=== PATIENT | male | born 1950 | race Caucasian/White ===

== ENCOUNTER 2019-10-23 15:37 | Emergency (ER) | payer MEDICARE, MEDICAID ==
[~2019-10-23] VITALS: Ht 167.6 cm; Wt 90.7 kg
[~2019-10-23 15:37] MED LIST: BACL10TA PO; GABA-532 PO; LISI10TA4 PO
[2019-10-23] MEDS ORDERED: methylPREDNISolone sod succ 125mg/2ml vial IV ONE (15:55)
[2019-10-23] MEDS ORDERED: ipratropium/albuterol 3ml nebule NEB ONE (15:55)
[2019-10-23 16:05] LABS: BASOPHILS # (AUTO) 0.1 X10'3 (0-0.2); BASOPHILS % (AUTO) 0.8 % (0-1); EOSINOPHILS # (AUTO) 0.2 X10'3 (0-0.9); EOSINOPHILS % (AUTO) 2.6 % (0-6); HEMATOCRIT 40.9 % (42.0-52.0); HEMOGLOBIN 13.8 g/dl (14.0-17.9); LYMPHOCYTES # (AUTO) 1.8 X10'3 (1.1-4.8); LYMPHOCYTES % (AUTO) 26.8 % (21-51); MEAN CORPUSCULAR HEMOGLOBIN 30.9 PG (27.0-31.0); MEAN CORPUSCULAR HGB CONC 33.7 g/dL (33.0-36.5); MEAN CORPUSCULAR VOLUME 91.7 FL (78-98); MEAN PLATELET VOLUME 7.8 FL (7.4-10.4); MONOCYTES # (AUTO) 0.7 X10'3 (0-0.9); MONOCYTES % (AUTO) 9.9 % (2-12); NEUTROPHILS % (AUTO) 59.9 % (42-75); PLATELET COUNT 216 X10'3 (140-440); RED BLOOD COUNT 4.45 X10'6 (4.70-6.10); RED CELL DISTRIBUTION WIDTH 14.6 % (11.5-14.5); WHITE BLOOD COUNT 6.7 X10'3 (4.5-11.0)
[2019-10-23 16:18] LABS: ALANINE AMINOTRANSFERASE 42 U/L (12-78); ALBUMIN 3.6 G/DL (3.4-5.0); ALBUMIN/GLOBULIN RATIO 0.9 (1.1-1.5); ALKALINE PHOSPHATASE 62 IU/L (46-116); ANION GAP 12 (8-16); ASPARTATE AMINO TRANSFERASE 28 U/L (10-37); BILIRUBIN,TOTAL 0.2 MG/DL (0.1-1.0); BLOOD UREA NITROGEN 7 MG/DL (7-18); BUN/CREATININE RATIO 8.8 (5.4-32.0); CALCIUM 8.8 MG/DL (8.5-10.1); CHLORIDE 105 MMOL/L (99-107); GLUCOSE 97 MG/DL (70-104); SODIUM 143 MMOL/L (135-145); TOTAL CARBON DIOXIDE 26.3 MMOL/L (24-32); TOTAL PROTEIN 7.4 G/DL (6.4-8.2); eGFR > 90 ML/MIN
[2019-10-23] MEDS ORDERED: ALBU6.7H9 INH (16:56)
[2019-10-23] MEDS ORDERED: PRED20TA PO (16:56)
[2019-10-23] MEDS ORDERED: AMOX-419 PO (16:56)
[2019-10-23 17:09] VITALS: BP 150/88
== END 2019-10-23 17:19 | disposition home or self-care (01) ==
LOC: ER 15:37
DX: J45.909 Unspecified asthma, uncomplicated (principal); Z87.891 Personal history of nicotine dependence; Z79.899 Other long term (current) drug therapy
CPT/HCPCS: 36415; 71046; 80053; 83605; 83880; 84484; 85025; 87040; 93005; 94640; 96374; 99284; J2930; 94760

== ENCOUNTER 2019-10-28 10:14 | Emergency (ER) | payer MEDICARE, MEDICAID ==
[~2019-10-28] VITALS: Ht 170.2 cm; Wt 92.0 kg
[~2019-10-28 10:14] MED LIST changes: +ALBU6.7H9 INH; +AMOX-419 PO; +PRED20TA PO
[2019-10-28 11:24] VITALS: BP 168/92
[2019-10-28] MEDS ORDERED: ipratropium/albuterol 3ml nebule NEB ONE (11:55)
[2019-10-28] MEDS ORDERED: BUDE10.2 INH (12:18)
== END 2019-10-28 12:23 | disposition home or self-care (01) ==
LOC: ER 10:14
DX: J44.1 Chronic obstructive pulmonary disease with (acute) exacerbation (principal); F12.90 Cannabis use, unspecified, uncomplicated; Z87.891 Personal history of nicotine dependence; Z91.048 Other nonmedicinal substance allergy status
CPT/HCPCS: 71046; 94640; 94760; 99283

== ENCOUNTER 2019-11-08 14:24 | Emergency (ER) | payer MEDICARE, MEDICAID ==
[~2019-11-08] VITALS: Ht 170.2 cm; Wt 87.5 kg
[~2019-11-08 14:24] MED LIST changes: -AMOX-419 PO; +BUDE10.2 INH; -PRED20TA PO
[2019-11-08 14:37] VITALS: BP 179/109
[2019-11-08] MEDS ORDERED: ketorolac tromethamine 15mg/ml inj. IM ONE (17:00)
== END 2019-11-08 17:37 | disposition home or self-care (01) ==
LOC: ER 14:24
DX: M25.512 Pain in left shoulder (principal); J44.9 Chronic obstructive pulmonary disease, unspecified; F12.90 Cannabis use, unspecified, uncomplicated; Z88.6 Allergy status to analgesic agent; Z79.899 Other long term (current) drug therapy
CPT/HCPCS: 73030; 96372; 99283; J1885

== ENCOUNTER 2021-06-22 19:10 | Inpatient (IN) | payer MEDICARE, MEDICAID ==
[~2021-06-22] VITALS: Ht 167.6 cm; Wt 93.0 kg
[~2021-06-22 19:10] MED LIST changes: +LISI10TA27 PO; -LISI10TA4 PO
[2021-06-22 20:04] LABS: BASOPHILS # (AUTO) 0.1 X10'3 (0-0.2); EOSINOPHILS # (AUTO) 0.5 X10'3 (0-0.9); HEMATOCRIT 40.3 % (42.0-52.0); HEMOGLOBIN 13.6 g/dl (14.0-17.9); LYMPHOCYTES # (AUTO) 1.6 X10'3 (1.1-4.8); MEAN CORPUSCULAR HEMOGLOBIN 31.6 PG (27.0-31.0); MEAN CORPUSCULAR HGB CONC 33.6 g/dL (33.0-36.5); MEAN PLATELET VOLUME 8.8 FL (7.4-10.4); MONOCYTES # (AUTO) 0.4 X10'3 (0-0.9); MONOCYTES % (AUTO) 5.4 % (2-12); NEUTROPHILS # (AUTO) 4.2 X10'3 (1.8-7.7); NEUTROPHILS % (AUTO) 62.6 % (42-75); PLATELET COUNT 171 X10'3 (140-440); RED BLOOD COUNT 4.28 X10'6 (4.70-6.10); RED CELL DISTRIBUTION WIDTH 15.2 % (11.5-14.5); WHITE BLOOD COUNT 6.7 X10'3 (4.5-11.0)
[2021-06-22 20:17] LABS: ALANINE AMINOTRANSFERASE 51 U/L (12-78); ALBUMIN/GLOBULIN RATIO 0.9 (1.1-1.5); ALKALINE PHOSPHATASE 101 IU/L (46-116); ANION GAP 12 (8-16); ASPARTATE AMINO TRANSFERASE 41 U/L (10-37); BILIRUBIN,TOTAL 0.9 MG/DL (0.1-1.0); BLOOD UREA NITROGEN 12 MG/DL (7-18); BUN/CREATININE RATIO 9.3 (5.4-32.0); CALCIUM 9.4 MG/DL (8.5-10.1); CHLORIDE 98 MMOL/L (99-107); CREATININE 1.29 MG/DL (0.60-1.10); GLUCOSE 115 MG/DL (70-104); POTASSIUM 4.1 MMOL/L (3.5-5.1); SODIUM 135 MMOL/L (135-145); TOTAL CARBON DIOXIDE 24.8 MMOL/L (24-32); TOTAL PROTEIN 8.4 G/DL (6.4-8.2); eGFR 55 ML/MIN
[2021-06-22 20:21] LABS: ETHANOL < 0.010 GM/DL (0.0-0.010); TROPONIN I < 0.04 NG/ML (0.0-0.05)
[2021-06-22] MEDS ORDERED: iohexol 350MG/ML 100ml bottle IV ONE (20:40)
--- NOTE | 2021-06-22 20:54 | NUR ---
to ct via [facility]
[2021-06-22 21:42] LABS: CLARITY,URINE CLEAR (Clear); COLOR,URINE STRAW (Yellow); GLUCOSE, URINE NEGATIVE (Neg); KETONES,URINE NEGATIVE (Neg); LEUKOCYTE ESTERASE ,URINE NEGATIVE (Neg); NITRITES, URINE NEGATIVE (Neg); OCCULT BLOOD,URINE NEGATIVE (Neg); PROTEIN,URINE NEGATIVE (Neg); UA COLLECTION TYPE URINAL; UROBILINOGEN,URINE 0.2 E.U/dL (0.2-1.0)
[2021-06-22 21:53] LABS: URINE AMPHETAMINE SCREEN NEGATIVE (Neg); URINE BARBITUATE SCREEN NEGATIVE (Neg); URINE BENZODIAZEPINES SCREEN NEGATIVE (Neg); URINE CANNABINOID SCREEN POSITIVE (Neg); URINE COCAINE SCREEN NEGATIVE (Neg); URINE METHADONE SCREEN NEGATIVE (Neg); URINE OPIATE SCREEN NEGATIVE (Neg); URINE PHENCYCLIDINE SCREEN NEGATIVE (Neg)
[2021-06-22] MEDS ORDERED: magnesium hydroxide 30ml (MOM) UD suspension PO PRN (23:35)
[2021-06-22] MEDS ORDERED: ondansetron/PF 4mg/2ml inj IV PRN (23:35)
[2021-06-22] MEDS ORDERED: potassium Cl 20 mEq SR tablet PO PRN ×2 (23:35)
[2021-06-22] MEDS ORDERED: acetaminophen 325mg tablet PO PRN (23:35)
[2021-06-22] MEDS ORDERED: mag hydrox/Alum hydrox/simeth 30ml oral suspension PO PRN (23:35)
[2021-06-22] MEDS ORDERED: potassium Cl 40MEQ/1/2NS 520ml 520 ML IV PRN ×2 (23:35)
[2021-06-22] MEDS ORDERED: traMADol 50MG tablet PO PRN (23:45)
[2021-06-22] MEDS ORDERED: METO25TA6 PO (23:50)
[2021-06-22] MEDS ORDERED: ATOR10TA70 PO (23:50)
[2021-06-22] MEDS ORDERED: OMEP-50 PO (23:50)
[2021-06-22] MEDS ORDERED: TRAM50TA2 PO (23:50)
[2021-06-22] MEDS ORDERED: LOSA50TA64 PO (23:51)
[2021-06-22] MEDS ORDERED: LOSA25TA41 PO (23:51)
[2021-06-23 02:21] LABS: ALANINE AMINOTRANSFERASE 44 U/L (12-78); ALBUMIN 3.4 G/DL (3.4-5.0); ALBUMIN/GLOBULIN RATIO 0.9 (1.1-1.5); ALKALINE PHOSPHATASE 90 IU/L (46-116); ANION GAP 8 (8-16); ASPARTATE AMINO TRANSFERASE 38 U/L (10-37); BLOOD UREA NITROGEN 12 MG/DL (7-18); BUN/CREATININE RATIO 9.8 (5.4-32.0); CALCIUM 8.7 MG/DL (8.5-10.1); CHLORIDE 100 MMOL/L (99-107); CREATININE 1.23 MG/DL (0.60-1.10); GLUCOSE 96 MG/DL (70-104); POTASSIUM 4.1 MMOL/L (3.5-5.1); SODIUM 136 MMOL/L (135-145); TOTAL CARBON DIOXIDE 27.8 MMOL/L (24-32); TOTAL PROTEIN 7.1 G/DL (6.4-8.2); eGFR 59 ML/MIN
--- NOTE | 2021-06-23 06:55 | NUR ---
Received report from Porsche PÉREZ in ER
[2021-06-23 08:00] VITALS: BP 158/96
[2021-06-23] MEDS: K and/or MAG REPLACEMENT MC SCH ×2 (08:00→20:00)
--- NOTE | 2021-06-23 08:30 | NUR ---
0830. Pt. in room. VSS. Pt. alert and orientated. No needs at this time. Oriented to room and call light within reach. No privacy curtains in room. secretary office clerk made aware.
[2021-06-23 09:14] LABS: BASOPHILS % (AUTO) 0.9 % (0-1); EOSINOPHILS # (AUTO) 0.5 X10'3 (0-0.9); EOSINOPHILS % (AUTO) 9.9 % (0-6); HEMATOCRIT 39.6 % (42.0-52.0); HEMOGLOBIN 13.2 g/dl (14.0-17.9); LYMPHOCYTES # (AUTO) 1.6 X10'3 (1.1-4.8); LYMPHOCYTES % (AUTO) 28.7 % (21-51); MEAN CORPUSCULAR HEMOGLOBIN 31.6 PG (27.0-31.0); MEAN CORPUSCULAR HGB CONC 33.4 g/dL (33.0-36.5); MEAN CORPUSCULAR VOLUME 94.6 FL (78-98); MEAN PLATELET VOLUME 9.2 FL (7.4-10.4); MONOCYTES # (AUTO) 0.4 X10'3 (0-0.9); MONOCYTES % (AUTO) 7.3 % (2-12); NEUTROPHILS # (AUTO) 2.9 X10'3 (1.8-7.7); NEUTROPHILS % (AUTO) 53.2 % (42-75); PLATELET COUNT 142 X10'3 (140-440); RED BLOOD COUNT 4.19 X10'6 (4.70-6.10); RED CELL DISTRIBUTION WIDTH 15.1 % (11.5-14.5); WHITE BLOOD COUNT 5.4 X10'3 (4.5-11.0)
[2021-06-23] MEDS: heparin, porcine 5000 units/ml vial SQ SCH ×2 (10:58→20:51)
[2021-06-23] MEDS: aspirin 325mg tablet, delayed-release (Ecotrin) PO SCH (10:59)
[2021-06-23] MEDS: losartan 25mg tablet PO SCH (10:59)
[2021-06-23 11:00] VITALS: BP 144/92
[2021-06-23] MEDS: atorvastatin 10mg tablet PO SCH (11:00)
[2021-06-23] MEDS: metoprolol succinate 25mg (24-HOUR) SR. Tablet PO SCH (11:00)
[2021-06-23] MEDS: docusate sod 100mg capsule PO SCH ×2 (11:00→20:50)
--- NOTE | 2021-06-23 15:20 | NUR ---
PAGER ID: [phone] MESSAGE: Javi Balwinder [id number] C/o 05/04 back pain. Tramadol only BID and has already been given. Machining Manager recommends ETOH folic acid, multi vi thiamine r/t 2-3 beers a day alcohol use. do you want this? Mildred [id number]
[2021-06-23] MEDS: traMADol 50MG tablet PO PRN (17:59)
--- NOTE | 2021-06-23 18:52 | NUR ---
Gave report to Nati colindres RN.
[2021-06-23 23:28] VITALS: BP 130/82
[2021-06-24 02:00] VITALS: BP 130/70
[2021-06-24] MEDS: traMADol 50MG tablet PO PRN ×2 (02:18→08:49)
[2021-06-24 06:15] LABS: BASOPHILS % (AUTO) 0.7 % (0-1); EOSINOPHILS # (AUTO) 0.7 X10'3 (0-0.9); EOSINOPHILS % (AUTO) 12.8 % (0-6); HEMATOCRIT 36.7 % (42.0-52.0); HEMOGLOBIN 12.2 g/dl (14.0-17.9); LYMPHOCYTES # (AUTO) 1.7 X10'3 (1.1-4.8); LYMPHOCYTES % (AUTO) 30.5 % (21-51); MEAN CORPUSCULAR HEMOGLOBIN 31.6 PG (27.0-31.0); MEAN CORPUSCULAR HGB CONC 33.2 g/dL (33.0-36.5); MEAN CORPUSCULAR VOLUME 95.4 FL (78-98); MEAN PLATELET VOLUME 9.8 FL (7.4-10.4); MONOCYTES # (AUTO) 0.4 X10'3 (0-0.9); MONOCYTES % (AUTO) 7.7 % (2-12); NEUTROPHILS # (AUTO) 2.7 X10'3 (1.8-7.7); NEUTROPHILS % (AUTO) 48.3 % (42-75); PLATELET COUNT 140 X10'3 (140-440); RED BLOOD COUNT 3.84 X10'6 (4.70-6.10); RED CELL DISTRIBUTION WIDTH 14.8 % (11.5-14.5); WHITE BLOOD COUNT 5.7 X10'3 (4.5-11.0)
[2021-06-24 06:27] LABS: ALANINE AMINOTRANSFERASE 42 U/L (12-78); ALBUMIN 3.2 G/DL (3.4-5.0); ALBUMIN/GLOBULIN RATIO 0.9 (1.1-1.5); ALKALINE PHOSPHATASE 84 IU/L (46-116); ANION GAP 8 (8-16); ASPARTATE AMINO TRANSFERASE 34 U/L (10-37); BILIRUBIN,TOTAL 0.9 MG/DL (0.1-1.0); BLOOD UREA NITROGEN 15 MG/DL (7-18); BUN/CREATININE RATIO 12.3 (5.4-32.0); CALCIUM 8.8 MG/DL (8.5-10.1); CHLORIDE 101 MMOL/L (99-107); CREATININE 1.22 MG/DL (0.60-1.10); GLUCOSE 87 MG/DL (70-104); POTASSIUM 3.7 MMOL/L (3.5-5.1); SODIUM 136 MMOL/L (135-145); TOTAL CARBON DIOXIDE 26.9 MMOL/L (24-32); TOTAL PROTEIN 6.9 G/DL (6.4-8.2); eGFR 59 ML/MIN
--- NOTE | 2021-06-24 06:33 | NUR ---
Patient in room [facility]. I have received report from Nati PÉREZ and had the opportunity to ask questions and assume patient care.
[2021-06-24 07:00] VITALS: BP 87/61
[2021-06-24] MEDS: K and/or MAG REPLACEMENT MC SCH (08:00)
[2021-06-24] MEDS: docusate sod 100mg capsule PO SCH (08:00)
[2021-06-24] MEDS: aspirin 325mg tablet, delayed-release (Ecotrin) PO SCH (08:46)
[2021-06-24] MEDS: atorvastatin 10mg tablet PO SCH (08:46)
[2021-06-24] MEDS: metoprolol succinate 25mg (24-HOUR) SR. Tablet PO SCH (08:46)
[2021-06-24] MEDS: heparin, porcine 5000 units/ml vial SQ SCH (08:47)
[2021-06-24] MEDS: losartan 25mg tablet PO SCH (08:51)
[2021-06-24 08:59] VITALS: BP 142/91
--- NOTE | 2021-06-24 11:13 | NUR ---
patient found to be saturated with urine this am. Placed in shower. Addendum: 06/24/21 at 1120 by Lisa Daniels RN wrong patient
[2021-06-24] MEDS ORDERED: MECL-159 PO (11:21)
--- NOTE | 2021-06-24 11:29 | NUR ---
patient up and about states he is still slightly dizzy when he stands up. orthosatic negative. seen by DR Worley is for discharge. All DC instructions given to patient. Patient is in stable condition. DC home via private car to home with friend
== END 2021-06-24 11:47 | disposition home or self-care (01) | DRG 149 ==
LOC: ER 19:11 → ED HOLD 23:36 → SUR 3N 06-23 08:18
PROVIDERS: ADMIT Internal Medicine; ATTEND Family Medicine
PROC: B3251ZZ Computerized Tomography (CT Scan) of Bilateral Common Carotid Arteries using Low Osmolar Contrast (ICD-10-PCS; principal; 2021-06-22)
PROC: B32G1ZZ Computerized Tomography (CT Scan) of Bilateral Vertebral Arteries using Low Osmolar Contrast (ICD-10-PCS; 2021-06-22)
PROC: B32R1ZZ Computerized Tomography (CT Scan) of Intracranial Arteries using Low Osmolar Contrast (ICD-10-PCS; 2021-06-22)
PROC: B3281ZZ Computerized Tomography (CT Scan) of Bilateral Internal Carotid Arteries using Low Osmolar Contrast (ICD-10-PCS; 2021-06-22)
DX: H81.10 Benign paroxysmal vertigo, unspecified ear (principal); R55 Syncope and collapse; I10 Essential (primary) hypertension; J44.9 Chronic obstructive pulmonary disease, unspecified; M19.90 Unspecified osteoarthritis, unspecified site; Z96.652 Presence of left artificial knee joint; M47.9 Spondylosis, unspecified; E78.5 Hyperlipidemia, unspecified; F12.90 Cannabis use, unspecified, uncomplicated; G89.29 Other chronic pain; M54.9 Dorsalgia, unspecified; Z79.899 Other long term (current) drug therapy; Z88.8 Allergy status to other drugs, medicaments and biological substances; Z79.82 Long term (current) use of aspirin
CPT/HCPCS: 36415; 70496; 70498; 70551; 71045; 80053; 80305; 80320; 81003; 84484; 85025; 87081; 93306; 99285; G0378; J1644; Q9967

== ENCOUNTER 2022-06-01 09:53 | Emergency (ER) | payer MEDICARE, MEDICAID ==
[~2022-06-01] VITALS: Ht 170.2 cm; Wt 90.9 kg
[~2022-06-01 09:53] MED LIST changes: -ALBU6.7H9 INH; +ATOR10TA70 PO; -BACL10TA PO; -BUDE10.2 INH; -GABA-532 PO; -LISI10TA27 PO; +LOSA25TA41 PO; +LOSA50TA64 PO; +MECL-159 PO; +METO25TA6 PO; +OMEP20CA16 PO; +TRAM50TA2 PO
[2022-06-01] MEDS ORDERED: HYDROcodone/acetaminophen 10/325mg tab PO ONE (11:45)
[2022-06-01 12:11] LABS: BASOPHILS # (AUTO) 0.2 X10'3 (0-0.2); EOSINOPHILS # (AUTO) 0.4 X10'3 (0-0.9)
[2022-06-01 12:20] LABS: HEMATOCRIT 35.6 % (42.0-52.0); WHITE BLOOD COUNT 6.8 X10'3 (4.5-11.0)
[2022-06-01 12:22] LABS: APTT 33 SECONDS (22-32); EOSINOPHILS % (AUTO) 5.7 % (0-6); MEAN CORPUSCULAR HEMOGLOBIN 33.6 PG (27.0-31.0); MEAN CORPUSCULAR HGB CONC 33.7 g/dL (33.0-36.5); MEAN CORPUSCULAR VOLUME 99.8 FL (78-98); MEAN PLATELET VOLUME 8.4 FL (7.4-10.4); NEUTROPHILS % (AUTO) 52.2 % (42-75); PLATELET COUNT 111 X10'3 (140-440); RED BLOOD COUNT 3.56 X10'6 (4.70-6.10); RED CELL DISTRIBUTION WIDTH 18.7 % (11.5-14.5)
[2022-06-01 12:25] LABS: BASOPHILS % (AUTO) 2.9 % (0-1); LYMPHOCYTES % (AUTO) 30.3 % (21-51); MONOCYTES # (AUTO) 0.7 X10'3 (0-0.9); NEUTROPHILS # (AUTO) 3.3 X10'3 (1.8-7.7)
[2022-06-01 12:28] LABS: ALANINE AMINOTRANSFERASE 34 U/L (12-78); ALBUMIN 2.7 G/DL (3.4-5.0); ALBUMIN/GLOBULIN RATIO 0.6 (1.1-1.5); ALKALINE PHOSPHATASE 103 IU/L (46-116); ANION GAP 8 (8-16); ASPARTATE AMINO TRANSFERASE 69 U/L (10-37); BILIRUBIN,TOTAL 1.2 MG/DL (0.1-1.0); BLOOD UREA NITROGEN 7 MG/DL (7-18); CALCIUM 8.8 MG/DL (8.5-10.1); CHLORIDE 109 MMOL/L (99-107); CREATININE 0.88 MG/DL (0.60-1.10); GLUCOSE 112 MG/DL (70-104); POTASSIUM 3.8 MMOL/L (3.5-5.1); SODIUM 146 MMOL/L (135-145); TOTAL CARBON DIOXIDE 28.6 MMOL/L (24-32); TOTAL PROTEIN 7.3 G/DL (6.4-8.2); eGFR 86 ML/MIN
[2022-06-01 12:49] LABS: ANISOCYTOSIS 2+; PLATELET ESTIMATE DECREASED; TOTAL CELLS COUNTED 100
[2022-06-01 13:06] VITALS: BP 140/88
== END 2022-06-01 13:11 | disposition home or self-care (01) ==
LOC: ER 09:53
DX: I89.0 Lymphedema, not elsewhere classified (principal); I10 Essential (primary) hypertension; J44.9 Chronic obstructive pulmonary disease, unspecified; G89.29 Other chronic pain; F12.90 Cannabis use, unspecified, uncomplicated; Z91.041 Radiographic dye allergy status; Z79.899 Other long term (current) drug therapy
CPT/HCPCS: 36415; 80053; 85007; 85025; 85610; 85730; 93971; 99284

== ENCOUNTER 2024-07-07 12:44 | Emergency (ER) | payer MEDICARE, MEDICAID ==
[~2024-07-07] VITALS: Ht 170.2 cm; Wt 91.4 kg
[~2024-07-07 12:44] MED LIST changes: -MECL-159 PO; +MECL-302 PO
[2024-07-07] MEDS: LORazepam 2 mg/ml vial IV ONE (14:23)
[2024-07-07] MEDS: normal saline 1000ML IV soln IVB ONE (14:23)
[2024-07-07 14:39] LABS: BASOPHILS # (AUTO) 0.1 X10'3 (0-0.2); EOSINOPHILS # (AUTO) 0.6 X10'3 (0-0.9); HEMOGLOBIN 13.7 g/dl (14.0-17.9); MEAN PLATELET VOLUME 9.7 FL (7.4-10.4); MONOCYTES # (AUTO) 0.3 X10'3 (0-0.9)
[2024-07-07 14:41] LABS: BASOPHILS % (AUTO) 2.7 % (0-1); EOSINOPHILS % (AUTO) 15.7 % (0-6); HEMATOCRIT 40.7 % (42.0-52.0); LYMPHOCYTES # (AUTO) 1.8 X10'3 (1.1-4.8); LYMPHOCYTES % (AUTO) 47.6 % (21-51); MEAN CORPUSCULAR HEMOGLOBIN 33.5 PG (27.0-31.0); MEAN CORPUSCULAR HGB CONC 33.7 g/dL (33.0-36.5); MEAN CORPUSCULAR VOLUME 99.1 FL (78-98); MONOCYTES % (AUTO) 8.2 % (2-12); NEUTROPHILS % (AUTO) 25.8 % (42-75); PLATELET COUNT 81 X10'3 (140-440); RED BLOOD COUNT 4.11 X10'6 (4.70-6.10); RED CELL DISTRIBUTION WIDTH 17.1 % (11.5-14.5); WHITE BLOOD COUNT 3.8 X10'3 (4.5-11.0)
[2024-07-07 14:47] LABS: ALANINE AMINOTRANSFERASE 44 U/L (12-78); ALBUMIN 3.2 G/DL (3.4-5.0); ALBUMIN/GLOBULIN RATIO 0.8 (1.1-1.5); ALKALINE PHOSPHATASE 89 IU/L (46-116); ANION GAP 7 (8-16); ASPARTATE AMINO TRANSFERASE 83 U/L (10-37); BILIRUBIN,DIRECT 0.5 MG/DL (0-0.3); BILIRUBIN,TOTAL 1.1 MG/DL (0.1-1.0); BLOOD UREA NITROGEN 7 MG/DL (7-18); BUN/CREATININE RATIO 6.9 (10.0-20.0); CALCIUM 8.2 MG/DL (8.5-10.1); CHLORIDE 107 MMOL/L (99-107); CREATININE 1.01 MG/DL (0.60-1.10); GLUCOSE 113 MG/DL (70-104); POTASSIUM 3.7 MMOL/L (3.5-5.1); SODIUM 141 MMOL/L (135-145); TOTAL CARBON DIOXIDE 27.4 MMOL/L (24-32); TOTAL PROTEIN 7.2 G/DL (6.4-8.2); eCRCL 63 ML/MIN; eGFR 73 ML/MIN
[2024-07-07 16:12] VITALS: BP 147/78; PULSE 78; RESP 16; TEMP 98.1; O2SAT 97
== END 2024-07-07 16:13 | disposition home or self-care (01) ==
LOC: ER 12:44
DX: F10.239 Alcohol dependence with withdrawal, unspecified (principal); F12.90 Cannabis use, unspecified, uncomplicated; I10 Essential (primary) hypertension; J44.9 Chronic obstructive pulmonary disease, unspecified; K21.9 Gastro-esophageal reflux disease without esophagitis; E78.5 Hyperlipidemia, unspecified; Z91.041 Radiographic dye allergy status; Z79.899 Other long term (current) drug therapy; Y90.9 Presence of alcohol in blood, level not specified
CPT/HCPCS: 80048; 80076; 84484; 85025; 93005; 96361; 96374; 99284; J2060; J7030

== ENCOUNTER 2024-07-31 18:22 | Emergency (ER) | payer MEDICARE, MEDICAID ==
[~2024-07-31] VITALS: Ht 175.3 cm; Wt 97.7 kg
[2024-07-31 18:28] VITALS: BP 132/90
[2024-07-31 20:44] VITALS: PULSE 86; RESP 16; O2SAT 97
[2024-07-31] MEDS: ketorolac trometh 15mg/ml vial 15 MG/ML ML IM ONE (21:07)
[2024-07-31 21:39] VITALS: TEMP 98.2
== END 2024-07-31 21:40 | disposition home or self-care (01) ==
LOC: ER 18:22
DX: R07.89 Other chest pain (principal); I10 Essential (primary) hypertension; J44.9 Chronic obstructive pulmonary disease, unspecified; G89.29 Other chronic pain; F12.90 Cannabis use, unspecified, uncomplicated; Z91.041 Radiographic dye allergy status; Z79.899 Other long term (current) drug therapy
CPT/HCPCS: 71101; 96372; 99284; J1885